=== PATIENT | male | born 1950 | race Caucasian/White ===

== ENCOUNTER 2017-01-23 11:18 | Inpatient (IN) | payer OTHER ==
[2017-01-23] VITALS (19 sets, daily range): BP systolic 91–144; BP diastolic 51–71; BMI 29.4; BMI 28.5
--- NOTE | ~2017-01-23 | HEMODYNAMI ---
PATIENT:NISHI VEGA JR MEDICAL RECORD: [id number] : 54 LOCATION:[facility] ADMISSION DATE: 01/23/17 Generatedon:01/23/201715:49 Patient name: NISHI VEGA Patient #: [id number] SSN: : 1950 Date of study: 01/23/2017 Page: Of Hemodynamic Procedure Report Patient Data Patient Demographics Procedure consent was obtained First Name: NISHI Gender: Male Last Name: GARY Suffix: [facility] Initial: KADE : 1950 Patient #: [id number] Age: 66 year(s) Race: Unknown Additional ID: [id number] Contact details [address]: [address] [place] [address] State: [place] City: [place] Zip code: [address] Admission Admission Data Admission Date: 01/23/2017 Admission Time: 11:18 Procedure Procedure Types Cath Procedure Diagnostic Procedure LHC LHC w/Coronaries Temporary Pacemaker PCI Procedure Coronary Stent Initial Miscellaneous Procedures Moderate Sedation up to 15 minutes Procedure Description Procedure Date Procedure Date: 01/23/2017 Procedure Start Time: 14:32 Procedure End Time: 15:26 Procedure Staff Name Function Carl Lozano MD Performing Physician Te Galaviz RN Nurse Bhargavi Delgado RT Scrub Sean Haile RT Monitor Hua Horton RN Nurse Ana Álvarez RN Nurse Gale Yan RT Garland Maker Silvia Paris RT Monitor Procedure Data Cath Procedure Fluoroscopy Diagnostic fluoroscopy Total fluoroscopy Time: 7.3 time: 7.3 min min Diagnostic fluoroscopy Total fluoroscopy dose: dose: 1616 mGy 1616 mGy Contrast Material Contrast Material Type Amount (ml) Isovue 300 162 Entry Location Entry Primary Successful Side Size Upsize Upsize Entry Closure Casey ccessful Closure Location (Fr) 1 (Fr) 2 (Fr) Remarks Device Remarks Radial Right 6 Fr Mechanical TR artery Short Compression Femoral Right 6 Fr sutured vein Short in Femoral Right 6 Fr Exoseal artery Short Estimated blood loss: 10 ml Diagnostic catheters Device Type Used For End Catheter Placement Diagnostic Terumo 5Fr Procedure [place] 110cm catheter Procedure Complications No complications Procedure Medications Medication Administration Route Dosage 0.9% NaCl I.V. 100 ml/hr Oxygen NC 2 l/min Heparin Flush Bag added to field 2 bags (1000units/500ml NS) Lidocaine 2% added to field 20 Radial Cocktail added to field 1 syringe (Verapomil 2mg/Nitro 400mcg/Heparin 1500units) Versed I.V. 2 mg Fentanyl I.V. 100 mcg Radial Cocktail I.A. 1 syringe (Verapomil 2mg/Nitro 400mcg/Heparin 1500units) Epinephrine I.V. mg Epinephrine I.V. mg Sodium Bicarb I.V. 50 meq Atropine I.V. 1 mg Amiodarone Loading I.V. drip 150 mg Dose (150mg/100ml D5W) Fentanyl I.V. 50 mcg Integrilin (Bolus I.V. 10.2 ml 2mg/ml) Integrilin Drip I.V. drip 17.9 ml/hr (75mg/100ml) Versed I.V. 4 mg Integrilin (Bolus wasted 9.8 ml 2mg/ml) Zofran I.V. 4 mg Hemodynamics Rest Heart Rate: 52 (bpm) Pressure Samples Time Site Value (mmHg) Purpose Heart Use Rate(bpm) 14:34 LV 87/21,13 Snapshot 141 14:35 AO 105/63(81) Pullback 76 14:35 LV 104/6,9 Pullback 76 14:35 AO 106/66(83) Snapshot 68 Gradients Valve Time Site 1 Site 2 Mean SEP/DFP Peak To Heart Use (mmHg) (sec/min) Peak Rate (mmHg) (bpm) Aortic 14:35 LV AO 0 12 0 76 104/6,9 105/63(81) Calculations Valve P-P Mean Valve Index Valve Source Name Gradient Area Flow (cm2) Aortic 0 0 0 0 Snapshots Pre Cath Intra NCS Post Cath Vital Signs Time Heart Resp SPO2 etCO2 NIBP (mmHg) Rhythm Pain Sedation Rate (ipm) (%) (mmHg) Status Level (bpm) 14:02:08 55 15 100 0 142/83(112) NSR 0 (11) 10(A) , No pain 14:06:50 54 17 98 0 126/75(95) NSR 0 (11) 10(A) , No pain 14:11:35 62 23 98 0 125/74(93) NSR 0 (11) 10(A) , No pain 14:16:50 54 17 97 0 126/73(94) NSR 0 (11) 10(A) , No pain 14:21:35 54 17 97 0 134/71(100) NSR 0 (11) 10(A) , No pain 14:26:18 53 16 97 0 131/71(99) NSR 0 (11) 10(A) , No pain 14:31:02 54 17 98 0 129/72(105) NSR 0 (11) 10(A) , No pain 14:35:43 69 19 93 0 116/71(87) NSR 0 (11) 9(A) , No pain 14:40:26 72 22 93 0 124/66(91) NSR 0 (11) 9(A) , No pain 14:45:04 85 19 94 0 88/58(74) NSR 0 (11) 9(A) , No pain 15:01:31 91 19 100 0 173/97(126) NSR 0 (11) 9(A) , No pain 15:06:16 125 16 99 0 131/82(100) NSR 0 (11) 9(A) , No pain 15:10:57 106 20 100 0 105/75(89) NSR 0 (11) 9(A) , No pain 15:15:35 98 24 0 84/59(72) NSR 0 (11) 9(A) , No pain 15:20:14 90 21 0 69/46(59) NSR 0 (11) 9(A) , No pain 15:24:48 89 18 98 0 70/45(55) NSR 0 (11) 9(A) , No pain Medications Time Medication Route Dose Verified Delivered Reason Notes Effectiveness by by 13:57:45 0.9% NaCl I.V. 100 Te Te Per ml/hr Anastacia Galaviz physician RN RN 13:57:57 Oxygen NC 2 l/min Te Te Per Anastacia Galaviz physician CORIN RN 13:58:23 Heparin Flush added 2 bags Te Te used for Bag to Anastacia Galaviz procedure (1000units/500ml field RN RN NS) 13:58:42 Lidocaine 2% added 20ml Te Te for local to vial Lorigan Lorigan anesthetic field RN RN 14:07:58 Radial Cocktail added 1 Te Te for (Verapomil to syringe Lorigan Lorigan vasodilation 2mg/Nitro RN RN 400mcg/Heparin 1500units) 14:17:30 Versed I.V. 2 mg Te Te for sedation Anastacia Galaviz RN RN 14:17:51 Fentanyl I.V. 100 mcg Te Te for sedation Anastacia Galaviz RN RN 14:33:33 Radial Cocktail I.A. 1 Te Carl for (Verapomil syringe Lorigan Blake vasodilation 2mg/Nitro CORIN DUVAL 400mcg/Heparin 1500units) 14:48:02 Atropine I.V. 1 mg Te Te For Lorigan Lorigan bradycardia RN RN 14:50:34 Epinephrine I.V. mg Te Carl Anastacia Lozano RN, MD 14:52:14 Epinephrine I.V. mg Te Carl Anastacia Lozano RN, MD 14:53:23 Amiodarone I.V. 150 mg Te Te for Loading Dose drip Lorigan Lorigan arrhythmia (150mg/100ml RN RN D5W) 14:54:21 Sodium Bicarb I.V. 50 meq Te Carl Per Anastacia Lozano physician RN 14:56:25 Versed I.V. 4 mg Te Te for sedation Anastacia Galaviz RN RN 15:08:17 Fentanyl I.V. 50 mcg Te Te for sedation Anastacia Galaviz RN RN 15:08:52 Integrilin I.V. 10.2 ml Te Te for (Bolus 2mg/ml) Lorhansel Galaviz antiplatelet RN RN therapy 15:13:28 Integrilin Drip I.V. 17.9 Te Te for (75mg/100ml) drip ml/hr Lorhansel Galaviz antiplatelet RN RN therapy 15:37:57 Integrilin wasted 9.8 ml Te Te for (Bolus 2mg/ml) Lorigan Anastacia antiplatelet RN RN therapy 15:48:33 Zofran I.V. 4 mg Te Te Per Anastacia Galaviz physician RN branch lending manager Log Time Note 13:40:00 Sean WHITE(R) sent for patient. Start room use. 13:40:06 Time tracking: Regular hours 13:40:22 Plan of Care:Hemodynamics will remain stable., Cardiac rhythm will remain stable., Comfort level will be maintained., Respiratory function will remain adequate., Patient/ family verbilizes understanding of procedure., Procedure tolerated without complication., Recovers from procedure without complications.. 13:51:13 Patient received from Pre/Post Procedure Room to CCL 1 Alert and oriented. Tansferred to table in Supine position. 13:51:14 Correct patient and procedure confirmed by team. 13:51:14 Warm blankets applied, and maxim hugger turned on for patient comfort. 13:51:18 Signed procedure consent form obtained from patient. 13:51:20 ECG and BP/O2 sat monitors applied to patient. 13:57:45 0.9% NaCl 100 ml/hr I.V. was administered by Te Galaviz RN; Per physician; 13:57:57 Oxygen 2 l/min NC was administered by Te Galaviz RN; Per physician; 13:58:23 Heparin Flush Bag (1000units/500ml NS) 2 bags added to field was administered by Te Galaviz RN; used for procedure; 13:58:42 Lidocaine 2% 20ml vial added to field was administered by Te Galaviz RN; for local anesthetic; 14:01:12 Vital chart was started 14:01:26 Baseline sample Acquired. 14:01:31 Rhythm: sinus bradycardia 14:01:32 Full Disclosure recording started 14:01:38 H&P Date Dictated: 01/21/2017 Within 30 days and on chart., H&P Addendum completed by physician on day of procedure. (MUST COMPLETE FOR ALL OUTPATIENTS). 14:01:45 Pre-procedure instructions explained to patient. 14:01:46 Pre-op teaching completed and patient verbalized understanding. 14:02:02 Family in patients room. 14:02:04 Patient NPO since Midnight. 14:02:06 Is the patient allergic to Iodine/contrast media? No. 14:02:15 Is patient on blood thinner?No 14:02:18 Patient diabetic? No. 14:02:21 Previous problem with sedation/anesthesia? No ? 14:02:21 Snore? Yes 14:02:22 Sleep apnea? No 14:02:23 Deviated septum? No 14:02:25 Opens mouth fully? Yes 14:02:25 Sticks out tongue? Yes 14:02:27 Airway obstruction? No ? 14:02:28 Dentures? No ? 14:02:32 Pre procedure: right dorsailis pedis pulse 1+ Palpable, but thready & weak; easily obliterated 14:02:34 Modified Ramiro's test Ulnar < 7 seconds 14:02:36 Patient pain scale 0/10 ?. 14:02:41 IV patent on arrival in left forearm with 0.9% NaCl at [facility]. 14:02:44 Lab results completed and on chart. 14:02:47 Right Radial & Right Groin area was prepped with chlora-prep and draped in sterile fashion 14:02:48 Alarms reviewed by R. N. 14:02:49 Sharps counted by scrub and verified by R.N. 14:02:52 Use device set Radial Dx 14:02:54 Acist Manifold opened to sterile field. 14:02:54 Tegaderm 4 x 4 opened to sterile field. 14:02:55 Acist Hand Control opened to sterile field. 14:02:56 Acist Syringe opened to sterile field. 14:02:57 Medline Cath Pack opened to sterile field. 14:02:57 Bag Decanter opened to sterile field. 14:02:58 Terumo 6Fr Slender Glidesheath opened to sterile field. 14:02:58 St Jesse 260cm J .035 wire opened to sterile field. 14:02:58 MBrace Wrist Support opened to sterile field. 14:05:07 Zero performed for pressure channel P1 14:05:15 Zero performed for pressure channel P1 14:07:58 Radial Cocktail (Verapomil 2mg/Nitro 400mcg/Heparin 1500units) 1 syringe added to field was administered by Te Galaviz RN; for vasodilation; 14:16:53 --------ALL STOP TIME OUT------ 14:16:54 Final Timeout: patient, procedure, and site verified with staff and physician. All members of the team are in agreement. 14:16:57 Right Radial & Right Groin site verified by team. 14:17:01 Physical assessment completed. ASA score P 2 - A patient with mild systemic disease as per Carl Lozano MD. 14:17:03 Sedation plan: IV Moderate Sedation Versed, Fentanyl 14:17:30 Versed 2 mg I.V. was administered by Te Galaviz RN; for sedation; 14:17:51 Fentanyl 100 mcg I.V. was administered by Te Galaviz RN; for sedation; 14:32:36 Procedure started. 14:32:42 Local anesthetic to right radial artery with Lidocaine 2% by Carl Lozano MD.INITIAL ACCESS ONLY 14:33:21 A 6 Fr Short sheath was inserted into the Right Radial artery 14:33:33 Radial Cocktail (Verapomil 2mg/Nitro 400mcg/Heparin 1500units) 1 syringe I.A. was administered by Carl Lozano MD; for vasodilation; 14:33:33 A Diagnostic Terumo 5Fr [place] 110cm catheter was advanced over the wire and used for Procedure. 14:34:43 LV angiography performed. 14:34:45 LV gram done using CUELLAR 14:34:52 EF : 50 % 14:35:05 LV hemodynamics recorded. 14:35:08 Injector settings: Ml/sec: 7, Volume: 15, 14:36:23 LCA angiography performed. 14:38:31 RCA angiography performed. 14:41:14 Catheter exchanged over wire. 14:41:17 Medtronic Launcher 6Fr EBU 3.5 guide catheter opened to sterile field. 14:41:27 6 Fr EBU 3.5 guide catheter was inserted over the wire 14:41:42 Guide advanced to better visualize LCA. 14:42:19 Guide Catheter removed. unable to cannulate vessel. 14:42:28 Medtronic Launcher 6Fr EBU 4.0 guide catheter opened to sterile field. 14:42:46 6 Fr EBU 4 guide catheter was inserted over the wire 14:46:02 Anesthesia Abhi intubated. 14:46:29 Whisper wire advanced. 14:48:02 Atropine 1 mg I.V. was administered by Te Galaviz RN; For bradycardia; 14:50:14 Temporary pacer turned on with the following settings: Rate 80, MA 10, Sensitivity ?. 14:50:34 Epinephrine mg I.V. was administered by Carl Lozano MD; ; 14:50:47 Temporary pacer inserted 14:50:56 Wire removed. 14:52:13 Terumo 6Fr Hammond Sheath opened to sterile field. 14:52:14 Epinephrine mg I.V. was administered by Carl Lozano MD; ; 14:52:53 A 6 Fr Short sheath was inserted into the Right Femoral vein 14:53:23 Amiodarone Loading Dose (150mg/100ml D5W) 150 mg I.V. drip was administered by Te Galaviz RN; for arrhythmia; 14:53:[address] 14:54:17 Arrhythmia noted, patient unresponsive. No pulses palpable. CPR begun. 14:54:21 Sodium Bicarb 50 meq I.V. was administered by Carl Lozaon MD; Per physician; 14:54:22 External pacer/defibrillator. Pads placed on patient. 14:54:51 Patient defibrillated/cardioverted at 200 Joules. 14:56:17 Patient defibrillated/cardioverted at 100 Joules. 14:56:25 Versed 4 mg I.V. was administered by Te Galaviz RN; for sedation; 14:56:28 Pt. bagged with bag/mask with 100% O2 by Hua Horton RN 14:57:57 Pt. was intubated by Carl Lozano MD with ?Fr endotrachial tube. Breath sounds equal bilaterally. Tube was taped into position at ?cm 15:01:32 Local anesthetic to right femoral artery with Lidocaine 2% by Carl Lozano MD.ADDITIONAL ACCESS 15:01:35 Terumo 6Fr Hammond Sheath opened to sterile field. 15:01:49 A 6 Fr Short sheath was inserted into the Right Femoral artery 15:02:32 6 Fr EBU guide catheter was inserted over the wire 15:04:08 ? wire advanced. 15:06:22 Wire advanced across lesion. 15:08:17 Fentanyl 50 mcg I.V. was administered by Te Galaviz RN; for sedation; 15:08:40 Inflation Number: 1 A Greyson OTW 3.0 x 15 stent was prepped and advanced across the Prox CX. The stent was deployed at 14 ISHAN for 0:20 (min:sec). 15:08:52 Integrilin (Bolus 2mg/ml) 10.2 ml I.V. was administered by Te Galaviz RN; for antiplatelet therapy; 15:09:09 Temporary pacer turn off 15:10:52 Patient stabilized. Resuscitation successful. 15:11:29 intubation removed and a non rebreather applied 15:12:44 Cordis 6Fr Exoseal opened to sterile field. 15:13:10 Guide catheter removed. 15:13:28 Integrilin Drip (75mg/100ml) 17.9 ml/hr I.V. drip was administered by Te Galaviz RN; for antiplatelet therapy; 15:13:44 Sheath removed intact; hemostasis achieved with Mechanical Compression to the Right Radial artery. 15:14:12 Sheath removed intact; hemostasis achieved with Exoseal to the Right Femoral artery. 15:14:43 Quick Combo opened to sterile field. 15:17:31 Procedure ended.(Physican Out) 15:17:52 Fluoroscopy time 07.30 minutes. 15:18:25 Fluoroscopy dose: 1616 mGy 15:18:25 Flurop Dose total: 1616 15:18:29 Contrast amount:Isovue 300 162ml. 15:18:42 TR band inflated with 10cc of air. 15:18:50 Insertion/operative site no bleeding no hematoma. 15:19:04 Post-op/insertion site Right Femoral artery dressed using a 4 x 4 and Tegaderm. 15:19:09 Post right femoral artery:stable 15:19:16 Post Procedure Pulses reassessed and unchanged 15:19:40 Estimated blood loss: 10 ml 15:19:41 Post procedure instruction explained to patient.Patient verbalizes understanding. 15:20:35 Procedure type changed to Cath procedure, Diagnostic procedure, LHC, LHC w/Coronaries, Temporary Pacemaker, PCI procedure, Coronary Stent Initial, Miscellaneous Procedures, Moderate Sedation up to 15 minutes 15:22:14 Procedure and supply charges have been captured, reviewed, submitted and are correct. 15:25:45 Procedure Complication : No complications 15:25:53 Vital chart was stopped 15:25:55 See physician's report for complete and final results. 15:25:57 Report given to ICU. 15:26:01 Patient transfered to ICU with Bed. 15:26:04 Procedure ended. 15:26:04 Full Disclosure recording stopped 15:26:08 End room use (Document Last) 15:37:57 Integrilin (Bolus 2mg/ml) 9.8 ml wasted was administered by Te Lorigan RN; for antiplatelet therapy; 15:48:33 Zofran 4 mg I.V. was administered by Te Galaviz RN; Per physician; Intervention Summary Intervention Notes Time ActionType Lesion and Equipment Action# Pressure Duration Attributes Used 15:08:40 Place stent Prox CX [place] OTW 1 14 00:20 3.0 x 15 stent Device Usage Item Name Manufacture Quantity Catalog Hospital Part Current Minima l Lot# / Number Charge Number Stock Stock Serial# Code Acist Acist 1 02313 519395 945377 400269 5 Manifold Medical Systems Inc Tegaderm 4 3M 1 1626W 974463 345319 476311 5 x 4 Acist Hand Acist 1 19137 702030 883952 913435 5 Control Medical Systems Inc Acist Acist 1 14506 364446 640289 283481 20 Syringe Medical Systems Inc Medline Cardinal 1 [id number] 682666 28026 964848 5 Cath Pack Health Bag Microtek 1 2002S 528490 99751 431105 5 Guidekick Inc. Terumo 6Fr Terumo 1 [id number] 159664 417496 758192 [address] Jesse 1 155721 039254 229662 968722 30 260cm J .035 wire MBrace Advanced 1 140-0250-00 517823 82015 246106 5 Wrist Vascular Support Dynamics Diagnostic Terumo 1 40-9921 700512 331376 037747 5 Terumo 5Fr [place] 110cm catheter Medtronic Medtronic 1 [id number] 762789 19685 199913 3 Launcher 6Fr EBU 3.5 guide catheter Medtronic Medtronic 1 [id number] 815819 61779 866789 1 Launcher 6Fr EBU 4.0 guide catheter Terumo 6Fr Terumo 2 [id number] 870587 089377 263029 40 Hammond Sheath [place] OTW Medtronic 1 [id number] 850819 233890 604711 5 [id number] 3.0 x 15 stent Cordis 6Fr Cardinal 1 EX600 976891 290290 226485 10 [employer] 1 [id number] 621827 450972 783396 5 Signature Audit Drums Stage Time Signature Unsigned Intra-Procedure 01/23/2017 Silvia Paris 3:49:09 PM RT(R) Signatures Monitor : Sean Haile RT Signature : Date : Time : Monitor : Silvia Paris Signature : RT Date : Time : [place] [address] [place] [address]
[2017-01-23] MEDS ORDERED: GLUCOPHAGE500 MG PO (11:55)
[2017-01-23] MEDS ORDERED: CELEXA20 MG PO (11:56)
[2017-01-23] MEDS ORDERED: ORACEA40 MG PO (11:57)
[2017-01-23] MEDS ORDERED: NEXIUM40 MG PO (11:57)
[2017-01-23] MEDS ORDERED: QUESTRAN LIG1 PACKET PO (11:58)
[2017-01-23 12:10] LABS: BASOPHILS 0.8 % (0-2); EOSINOPHILS 1.8 % (0-7); HEMATOCRIT 45.4 % (42.0-54.0); HEMOGLOBIN 15.9 g/dL (13.5-17.5); IMMATURE GRANULOCYTES 0.3 % (0-5); LYMPHOCYTES 28.9 % (15-50); MCH 31.9 pg (26.0-34.0); MEAN PLATELET VOLUME 11.7 fL (7.4-10.4); MONOCYTES 7.3 % (2-11); NEUTROPHILS 60.9 % (40-80); PLATELET COUNT 148 10x3/uL (130-400); RBC 4.99 10x6/uL (4.20-6.10); RDW 12.8 % (11.5-14.5); WBC 6.6 10x3/uL (4.8-10.8)
[2017-01-23 12:28] LABS: CALC OSMOLALITY 279 mosm/kg (275-300); CALCIUM 9.6 mg/dL (8.5-10.1); CARBON DIOXIDE 27.2 mmol/L (21.0-32.0); CHLORIDE - SERUM 103 mmol/L (98-107); GLUCOSE 101 mg/dL (74-106); POTASSIUM - SERUM 4.2 mmol/L (3.5-5.1); SODIUM 140 mmol/L (136-145); UREA NITROGEN 15 mg/dL (7-18); eGFR NON AFRICAN AMERICAN 80 mL/min (90-120)
--- NOTE | 2017-01-23 16:40 | NUR ---
MARIA GARY -DIL [phone] KISOHRE MONTAGUE -DAUGHTER [phone]
--- NOTE | 2017-01-23 17:54 | NUR ---
PT MORE ALERT. ASKING FOR SOMETHING TO EAT. VSS. PT LEFT UPPER LIP SWELLING AND SLIGHT BLEEDING. COLD COMPRESSES BEING PROVIDED AND MOISURIZER. FAMILY AT BEDSIDE. QUESTIONS ANSWERED.
--- NOTE | 2017-01-23 19:38 | NUR ---
SANDWICH TRAY AND JELLO PROVIDED TO PATIENT. DAUGHTER IN LAW AT BEDSIDE TO ASSIST. PT ALERT AND ORIENTED. BLEEDING AT LIP SUBSIDED, SWELLING STILL NOTED. PT INSTRUCTED TO KEEP LEGS STRAIGHT.
--- NOTE | 2017-01-23 19:40 | NUR ---
REPORT REC'D AND CARE ASSUMED, PT ATE 50% OF SANDWICH TRAY, DAUGHTER IN LAW AT BS, PT AWAKE, ALERT, ORIENTED X 4, O2 @ 3LITERS VIA NC, LEFT FOREARM PIV WITH NS, FLUID INCREASED TO 200CC/HR X 2 HR PER ORDER, RIGHT WRIST TRBAND IN PLACE AND INFLATED, SLOWLY DECREASING CUFF AT THIS TIME, NO BLEEDING OR HEMATOMA NOTED, RIGHT GROIN VENOUS SHEATH DRSG INTACT WITH BLOODY DRAINAGE NOTED, NO HEMATOMA NOTED, WILL MONITOR FOR FURTHER BLEEDING, EXPLAINED TO PT THE NEED TO KEEP RIGHT LEG STRAIGHT WITH SHEATH IN, VERBALIZES UNDERSTANDING, PT DENIES PAIN OR NEEDS, SR UP X 2, CALL LIGHT IN REACH, VISIBLE TO NURSES STATION.
--- NOTE | 2017-01-23 21:15 | NUR ---
LIGHTS ADJUSTED FOR PT COMFORT, TRBAND REMOVED AND 2X2 AND SMALL TEGADERM APPLIED, PT TOLERATED WELL, WILL MONITOR FOR BLEEDING.
--- NOTE | 2017-01-23 22:45 | NUR ---
PT ATTEMPTING TO USE URINAL, CURTAIN PULLED FOR PRIVACY, PT REQUESTING TO BE SET UP IN BED, EXPLAINED TO PT THAT WAS NOT POSSIBLE, BED PLACED IN REVERSE [place].
--- NOTE | 2017-01-23 22:53 | NUR ---
PT VOIDED 350CC CLEAR YELLOW URINE, BED ADJUSTED FOR COMFORT, ICE WATER PROVIDED, RIGHT WRIST DRSG CDI, RIGHT GROIN DRSG INTACT WITH NO FURTHER BLEEDING NOTED, SITE SOFT TO PALPATION, WILL CONT TO MONITOR FOR CHANGES.
--- NOTE | 2017-01-23 23:15 | NUR ---
REASSESSMENT COMPLETED, DEFIBRILLATOR PADS REMOVED FROM CHEST DUE TO PT COMPLAINTS OF ITCHING, VSS, PPP, WILL CONT TO MONITOR FOR CHANGES.
[2017-01-24] VITALS (8 sets, daily range): BP systolic 97–119; BP diastolic 59–78; BMI 28.4
--- NOTE | 2017-01-24 01:30 | NUR ---
PT COMPLAINS OF BEING HUNGRY, SNACK PROVIDED, RIGHT GROIN DRSG REMAINS CDI, NO FURTHER BLEEDING OR HEMATOMA, PT REMINDED TO KEEP RIGHT LEG STRAIGHT, VSS, PT DENIES PAIN OR OTHER NEEDS.
--- NOTE | 2017-01-24 03:00 | NUR ---
PT REPOSITIONED UP IN BED, VSS, CM-SR, PT DENIES FURTHER NEEDS.
--- NOTE | 2017-01-24 05:00 | NUR ---
NO CHANGES IN STATUS AT THIS TIME
--- NOTE | 2017-01-24 06:30 | NUR ---
PT RESTING IN BED WATCHING TV, COFFEE PROVIDED ON REQUEST, PT DENIES PAIN OR OTHER NEEDS
--- NOTE | 2017-01-24 07:00 | NUR ---
ASSESSMENT PER FLOWSHEET. RIGHT GROIN VENOUS SHEATH.
--- NOTE | 2017-01-24 08:45 | NUR ---
DR ORTIZ HERE VENOUS SHEATH DCD. PRESSURE HELD FOR FIVE MINUTES. SITE LOOKS CDI AND SOFT BEDREST FOR ONE HOUR PER DR COTTRELL. OK TO DC HOME.
--- NOTE | 2017-01-24 09:12 | NUR ---
Is the patient Alert and Oriented? Yes 0 * How many steps to enter\exit or inside your home? 5 RAIL 0 * PCP DR. MILLAN 0 * Pharmacy [facility] IN [place] 0 * Preadmission Environment Home Alone 0 * ADLs Independent 0 * Equipment None 0 * List name and contact numbers for known caregivers / representatives who currently or will assist patient after discharge: SON: SAROJ VEGA [phone] 0 * Community resources currently utilized None 0 * Additional services required to return to the preadmission environment? No 0 * Can the patient safely return to the preadmission environment? Yes 0 * Has this patient been hospitalized within the prior 30 days at any hospital? No PATIENT IS AWAKE AND ALERT. HE LIVES ALONE BUT HIS SON AND DAUGHTER IN LAW LIVE NEXT DOOR TO HIM. HE STATES HIS FRIEND, BARB MORRIS, WILL DRIVE HIM HOME WHEN HE IS DISCHARGED. BARB'S PHONE NUMBER IS [phone]. PATIENT STATES HE WAS INDEPENDENT IN ALL ADL'S PRIOR TO COMING INTO THE HOSPITAL. PATIENT'S PCP IS DR. MILLAN IN [place]. HE GETS HIS MEDICATION FROM [facility] IN [place]. PATIENT DENIES USE OF ANY EQUIPMENT AND DENIES EVER HAVING HOME HEALTH. PATIENT STATES THERE ARE 5 STEPS WITH A RAIL TO ENTER HIS HOME. PATIENT DENIES ANY DISCHARGE NEEDS AT THIS TIME.
--- NOTE | 2017-01-24 10:30 | NUR ---
PT DCD TO HOME. RX GIVEN. CARD GIVEN FOR STENT. INSTRUCT NO METAFORMIN PER DR ORTIZ. IV DCD WITH CATH INTACT. PT STATES HE UNDERSTANDS. RIGHT GROIN SOFT AND COVERED WITH A BANDAID. LEFT VIA PRIVATE AUTO.
--- NOTE | 2017-01-24 12:40 | OP ---
PATIENT NAME: NISHI VEGA JR MEDICAL RECORD: [id number] :54 LOCATION:[facility] ADMISSION DATE:01/23/17 SURGEON: TRICIA ORTIZ MD DATE OF OPERATION: 01/23/2017 PROCEDURES: Left heart catheterization, selective coronary angiography, and initial right radial approach. CATHETERS: Initially, a Bath catheter and radial sheath. FINDINGS: Left ventriculography in 30-degree CUELLAR view shows anterior basilar hypokinesis. Overall function mildly reduced 50%. CORONARY ANATOMY: LEFT MAIN: Left main is free of disease. LAD: LAD had luminal irregularities, no flow obstructive stenosis. 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 RIGHT CORONARY ARTERY: Right coronary is the dominant system, gives rise to PDA and is again has luminal irregularity, no flow obstructive stenosis. This also gave rise to the true OM which showed only luminal irregularities. We were possibly exchanging catheters for better look at the left circumflex OM. The patient became markedly bradycardic with ST segment elevation. Subsequently, had V-tach and V-fib. A repeat catheterization showed what I initially thought was possibly a guide catheter dissection. The patient was given atropine, epinephrine, amiodarone and cardioverted on 3 separate occasions. At this point, the coronary anatomy was again revisualized and this showed excellent flow at this point down the LAD with minimal luminal irregularities, still with 78% at circumflex. This vessel was stented with a 3.0 Greyson stent up to 14 atmospheres. 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 In multiple views, it looks more like a dissection; however, multiple views taken after the case showed this was not the case, possible embolic event versus other. He was transferred to the ICU in critical, but stable condition. TRANSINT:[id number] Voice Confirmation ID: [id number] DOCUMENT ID: [id number] TRICIA ORTIZ MD at 1240 CC: [id number] DICTATION DATE: 01/23/17 1551 FERMENTING CELLAR DROPPER: 01/23/171952 DIS IN 01/24/17 [facility] [address] [place] [address]
--- NOTE | 2017-01-24 12:40 | DS ---
PATIENT:NISHI VEGA JR :54 MEDICAL RECORD: [id number] DISCHARGE SUMMARY ADMISSION DATE: 01/23/17 DISCHARGE DATE: 01/24/17 DATE OF ADMISSION: 01/23/2017. DATE OF DISCHARGE: 01/24/2017. PROBLEM LIST: 1. Coronary artery disease, status post intervention. 2. Hypertension. 3. Cardiac arrest. BRIEF HISTORY AND HOSPITAL COURSE: A 66-year-old gentleman who was undergoing angiography and intervention. Prior to any manipulation, had loss of his LAD, initially thought to be guide catheter section; however, after cardioversion, epinephrine, amiodarone, and IV heparin, LAD reopened with no sequelae. Subsequently the OM1 was stented and felt to be possible to unseen embolic event versus a true vasospasm. He was discharged home in good condition. MEDICATIONS: Same as home except add Plavix 75 every day for 6 months given Greyson stent. See him back in the office for scheduled followup. TRANSINT:[id number] Voice Confirmation ID: [id number] DOCUMENT ID: [id number] TRICIA ORTIZ MD at 1240 CC: [id number] DICTATION DATE: 01/24/17 0841 GENETICS NURSE: 01/24/17 1223 DIS IN 01/24/17 [id number] [place] [address]
== END 2017-01-24 11:00 | disposition home or self-care (01) | DRG 246 ==
LOC: D.CATH 11:18 → D.CVICU 15:16
PROVIDERS: ADMIT Internal Medicine Interventional Cardiology
PROC: B2151ZZ Fluoroscopy of Left Heart using Low Osmolar Contrast (ICD-10-PCS; 2017-01-23)
PROC: 5A12012 Performance of Cardiac Output, Single, Manual (ICD-10-PCS; 2017-01-23)
PROC: 0BH17EZ Insertion of Endotracheal Airway into Trachea, Via Natural or Artificial Opening (ICD-10-PCS; 2017-01-23)
PROC: 5A1223Z Performance of Cardiac Pacing, Continuous (ICD-10-PCS; 2017-01-23)
PROC: 027034Z Dilation of Coronary Artery, One Artery with Drug-eluting Intraluminal Device, Percutaneous Approach (ICD-10-PCS; principal; 2017-01-23 14:00)
PROC: 4A023N7 Measurement of Cardiac Sampling and Pressure, Left Heart, Percutaneous Approach (ICD-10-PCS; 2017-01-23 14:00)
PROC: B2111ZZ Fluoroscopy of Multiple Coronary Arteries using Low Osmolar Contrast (ICD-10-PCS; 2017-01-23 14:00)
DX: I25.10 Atherosclerotic heart disease of native coronary artery without angina pectoris (principal); I46.9 Cardiac arrest, cause unspecified; I10 Essential (primary) hypertension; R00.1 Bradycardia, unspecified

== ENCOUNTER → 2018-08-28 09:13 | Outpatient (CLI) | payer MEDICARE, OTHER ==
[2017-01-24 10:22] VITALS: BMI 28.4
[~2018-08-28 09:13] MED LIST: CELEXA20 MG PO; GLUCOPHAGE500 MG PO; NEXIUM40 MG PO; ORACEA40 MG PO; QUESTRAN LIG1 PACKET PO
--- NOTE | 2018-09-01 10:07 | EC ---
PATIENT:NISHI VEGA JR DATE OF SERVICE: 08/28/18 SEX: M MEDICAL RECORD: [id number] DATE OF : 54 LOCATION:D[facility] AGE OF PATIENT: 68 ADMISSION DATE: 08/28/18 REFERRING PHYSICIAN: INTERPRETING PHYSICIAN: TRICIA ORTIZ MD ECHOCARDIOGRAM REPORT ECHO CHARGES 4 ECHO COMPLETE Date: 08/28/18 CLINICAL DIAGNOSIS: HTN HX OF CAD ECHOCARDIOGRAPHIC MEASUREMENTS (adult normal given) AC root (d.<3.7cm) 4.5 cm LV Septum d (<1.2 cm> 1.6 cm Valve Excursion 2.5 cm LV Septum (systole) 1.9 cm Left Atria (s.<4.0cm> 4.3 cm LVPW d(<1.2cm) 1.8 cm RV (d.<2.3cm) 4.6 cm LVPW (sytole) 2.1 cm LV diastole(<5.6CM) 6.0 cm MV E-F(>70mm/sec) cm LV systole 4.8 cm LVOT Diameter 2.3 cm MV exc.(>10mm) 1.8 cm Est.ejection fraction (50-75%) % DOPPLER: LVIT cm/sec A 78.0 cm/sec E 72.0 cm/sec LA cm/sec RVSP 26 mmHg LVOT 96 cm/sec AOP1/2T m/s Asc. Ao 130 cm/sec RVOT 75 cm/sec RA cm/sec PA 121 cm/sec AV Gradient Peak 6.80 mmHg AV Mean 3.81 mmHg AV Area 3.2 cm MV Gradient Peak 3.75 mmHg MV Mean 1.56 mmHg MV Area cm COMMENTS: Unindentured Apprentice: 2 DIAZ HARRIS Warm In Worker: 3 Dr. Lozano TAPE# PACS Pericardial Effusion N DATE OF SERVICE: Adequate 2D, color flow, spectral Doppler, and M-Mode. LVH is present. LV internal dimension is normal. Wall motion is normal. EF is greater than or equal to 55%. Aortic valve is tricuspid without evidence of stenosis by Doppler interrogation. Left atrium is normal. Mitral valve shows no prolapse. Trace MR. Right-sided chambers are grossly normal. Trace TR. TRANSINT:[id number] Voice Confirmation ID: [id number] DOCUMENT ID: [id number] ECHOCARDIOGRAM REPORT [id number] NISHI VEGA JR, GREGORY A MD at 1007 CC: [id number] DICTATION DATE: 08/29/181824 CERTIFIED MEDICATION AIDE: 08/30/18 0120 DEP CLI 08/28/18 [id number] [place] [address]
== END | disposition home or self-care (01) ==
LOC: D.HCCARDIO 09:13
PROVIDERS: ATTEND Internal Medicine Interventional Cardiology
DX: I10 Essential (primary) hypertension (principal)

== ENCOUNTER → 2019-04-28 09:29 | Outpatient (CLI) | payer MEDICARE ==
[2017-01-24 10:22] VITALS: BMI 28.4
== END | disposition home or self-care (01) ==
LOC: D.MRI 09:29
PROVIDERS: ATTEND Family Medicine
DX: M79.602 Pain in left arm (principal); M54.2 Cervicalgia

== ENCOUNTER → 2019-06-09 09:59 | Outpatient (CLI) | payer MEDICARE ==
[2017-01-24 10:22] VITALS: BMI 28.4
== END | disposition home or self-care (01) ==
LOC: D.MRI 09:59
PROVIDERS: ATTEND Family Medicine
DX: M25.512 Pain in left shoulder (principal)

== ENCOUNTER → 2019-09-16 14:12 | Outpatient (CLI) | payer MEDICARE ==
[2017-01-24 10:22] VITALS: BMI 28.4
--- NOTE | 2019-09-18 01:43 | EC ---
PATIENT:NISHI VEGA JR DATE OF SERVICE: 09/16/19 SEX: M MEDICAL RECORD: [id number] DATE OF : 54 [facility]: 69 ADMISSION DATE: 09/16/19 REFERRING PHYSICIAN: INTERPRETING PHYSICIAN: TRICIA ORTIZ MD ECHOCARDIOGRAM REPORT ECHO CHARGES Date: CLINICAL DIAGNOSIS: ECHOCARDIOGRAPHIC MEASUREMENTS (adult normal given) AC root (d.<3.7cm) cm LV Septum d (<1.2 cm> cm Valve Excursion cm LV Septum (systole) cm Left Atria (s.<4.0cm> cm LVPW d(<1.2cm) cm RV (d.<2.3cm) cm LVPW (sytole) cm LV diastole(<5.6CM) cm MV E-F(>70mm/sec) cm LV systole cm LVOT Diameter cm MV exc.(>10mm) cm Est.ejection fraction (50-75%) % DOPPLER: LVIT cm/sec A cm/sec E cm/sec LA cm/sec RVSP mmHg LVOT cm/sec AOP1/2T m/s Asc. Ao cm/sec RVOT cm/sec RA cm/sec PA cm/sec AV Gradient Peak mmHg AV Mean mmHg AV Area cm MV Gradient Peak mmHg MV Mean mmHg MV Area cm COMMENTS: Radial Router Operator: Single Needle Operator: JASWINDER# Pericardial Effusion DATE OF SERVICE: Adequate 2D, color flow imaging, spectral Doppler, and M-Mode LVH is present. LV internal dimension is normal. Wall motion is normal. EF is greater than or equal to 55%. Aortic valve is tricuspid. No evidence of stenosis by Doppler interrogation. Left atrium is normal at 4.0 cm. Mitral valve shows no prolapse. Trace MR. Right-sided chambers are grossly normal. Trace TR. ECHOCARDIOGRAM REPORT [id number] NISHI VEGA JR TRANSINT:[id number] Voice Confirmation ID: [id number] DOCUMENT ID: [id number] TRICIA ORTIZ MD at 0143 CC: [id number] DICTATION DATE: 09/17/19 0827 TRANSMISSION SYSTEM OPERATOR: 09/17/19 1308 DEP CLI 09/16/[address] [address]
== END | disposition home or self-care (01) ==
LOC: D.HCCECHO 09-10 10:30
PROVIDERS: ATTEND Internal Medicine Interventional Cardiology
DX: I25.10 Atherosclerotic heart disease of native coronary artery without angina pectoris (principal)

== ENCOUNTER → 2020-06-10 11:43 | Outpatient (CLI) | payer MEDICARE, OTHER ==
[2020-04-16 15:34] VITALS: BMI 29.7
[~2020-06-10 11:43] MED LIST changes: +DULERA 100 MCG8.8 GM INH; +MELATONIN 3 MG1 TAB PO; +MUCINEX600 MG PO; +MULTI-DAY VITAM1 TAB PO; +PREDNISONE10 MG PO; +TESSALON PERLE100 MG PO; +VENTOLIN HFA [SP8 GM INH; +VITAMIN B-1100 M1 PO; +VITAMIN C PO; +VITAMIN D325 MC1 PO; +ZINC-220220 MG PO
== END | disposition home or self-care (01) ==
LOC: D.LAB 11:43
PROVIDERS: ATTEND Internal Medicine Pulmonary Disease
DX: Z11.52 Encounter for screening for COVID-19 (principal)

== ENCOUNTER → 2020-06-15 14:13 | Outpatient (CLI) | payer MEDICARE, OTHER ==
[2020-04-16 15:34] VITALS: BMI 29.7
== END | disposition home or self-care (01) ==
LOC: D.RT 14:00
PROVIDERS: ATTEND Internal Medicine Pulmonary Disease
DX: J44.9 Chronic obstructive pulmonary disease, unspecified (principal)

== ENCOUNTER 2020-07-07 17:18 | Emergency (ER) | payer MEDICARE, OTHER ==
[~2020-07-07] VITALS: Ht 195.6 cm; Wt 106.4 kg
[2020-07-07 17:26] VITALS: Ht 195.6 cm; Wt 106.4 kg
[2020-07-07 17:48] LABS: BASOPHILS 0.9 % (0-2); EOSINOPHILS 1.9 % (0-7); HEMATOCRIT 43.4 % (42.0-54.0); HEMOGLOBIN 14.9 g/dL (13.5-17.5); IMMATURE GRANULOCYTES 0.2 % (0-5); LYMPHOCYTE ABS# 2.32 10x3/uL (1.32-3.57); LYMPHOCYTES 28.6 % (15-50); MCH 31.4 pg (26.0-34.0); MCHC 34.3 g/dL (31.0-37.0); MCV 91.4 fL (80.0-100.0); MEAN PLATELET VOLUME 10.7 fL (7.4-10.4); MONOCYTES 9.5 % (2-11); NEUTROPHIL ABS# 4.77 10x3/uL (1.78-5.38); NEUTROPHILS 58.9 % (40-80); RBC 4.75 10x6/uL (4.20-6.10); RDW 14.1 % (11.5-14.5); WBC 8.1 10x3/uL (4.8-10.8)
[2020-07-07 17:51] LABS: PLATELET COUNT 193 10x3/uL (130-400)
[2020-07-07 17:58] LABS: CALC OSMOLALITY 267 mosm/kg (275-300); CALCIUM 9.4 mg/dL (8.5-10.1); CARBON DIOXIDE 24.8 mmol/L (21.0-32.0); CHLORIDE - SERUM 100 mmol/L (98-107); CREATININE - SERUM 1.5 mg/dL (0.6-1.3); POTASSIUM - SERUM 4.1 mmol/L (3.5-5.1); SODIUM 133 mmol/L (136-145); UREA NITROGEN 17 mg/dL (7-18); eGFR NON AFRICAN AMERICAN 49 mL/min (90-120)
[2020-07-07 17:59] LABS: APTT 30.3 SECONDS (22.8-39.4); INR 1.19 (0.85-1.17)
[2020-07-07 18:04] LABS: GLUCOSE 96 mg/dL (74-106)
[2020-07-07 18:14] LABS: ALBUMIN 4.2 g/dL (3.4-5.0); ALKALINE PHOSPHATASE 63 U/L (30-120); ALT (SGPT) 27 U/L (10-68); BILIRUBIN - TOTAL 0.71 mg/dL (0.2-1.3); CKMB 0.3 U/L (0.0-3.6); CREATINE KINASE 40 UL (21-232); MAGNESIUM - SERUM 1.9 mg/dL (1.8-2.4); PROTEIN - SERUM 7.2 g/dL (6.4-8.2); TROPONIN-I < 0.017 ng/mL (0.000-0.060)
[2020-07-07 20:36] VITALS: BP 109/62
== END 2020-07-07 20:37 | disposition home or self-care (01) ==
LOC: D.ER 17:18
PROVIDERS: Emergency Medicine
DX: R53.1 Weakness (principal); I95.9 Hypotension, unspecified; E11.9 Type 2 diabetes mellitus without complications; Z79.84 Long term (current) use of oral hypoglycemic drugs

== ENCOUNTER → 2020-10-03 10:03 | Outpatient (CLI) | payer MEDICARE, OTHER ==
[2020-07-07 17:26] VITALS: BMI 27.8
== END | disposition home or self-care (01) ==
LOC: D.HCCECHO 09-30 10:30
PROVIDERS: ATTEND Internal Medicine Interventional Cardiology
DX: I25.10 Atherosclerotic heart disease of native coronary artery without angina pectoris (principal)